=== PATIENT | male | born 1950 | race Caucasian/White ===

== ENCOUNTER 2018-06-30 11:09 | Outpatient (CLI) | payer MEDICARE | END 2018-06-30 11:10 | disposition home or self-care (01) | LOC: BICRAD 11:09 | PROVIDERS: ATTEND Internal Medicine | DX: J44.9 Chronic obstructive pulmonary disease, unspecified (principal) | CPT/HCPCS: 71046 ==

== ENCOUNTER 2018-07-14 10:47 | Outpatient (CLI) | payer MEDICARE ==
--- NOTE | 2018-07-14 11:23 | ULT ---
RENAL ULTRASOUND: History: Chronic renal disease. FINDINGS: Real-time imaging of the right and left kidneys were performed. The right kidney measures 9.6. The le ft kidney 10.9 cm in size. No signs of cyst, mass or obstruction. The bladder region appears unremark able. IMPRESSION: Unremarkable renal ultrasound. POS: [facility]
== END 2018-07-14 10:48 | disposition home or self-care (01) ==
LOC: SCSULT 10:47
PROVIDERS: ATTEND Internal Medicine
DX: N18.3 Chronic kidney disease, stage 3 (moderate) (principal)
CPT/HCPCS: 76770

== ENCOUNTER 2018-07-20 09:14 | Outpatient (CLI) | payer MEDICARE ==
--- NOTE | 2018-07-20 10:54 | CT ---
CT CHEST WITHOUT CONTRAST: HISTORY: History of nicotine dependence. A 40-year smoking history. The patient quit in 2007. Low dose [facility] screening protocol. TECHNIQUE: Multiple contiguous axial images were obtained in a CT of the chest without contrast, per low dose mi ncer screening protocol. Coronal reformats were performed. FINDINGS: No focal infiltrates are seen in the lungs. No suspicious pulmonary nodules are seen. There is a kristy ny excrescence projecting off one of the left mid ribs, along the periphery of the left upper lobe. No pneumothorax or pleural effusion is seen. The heart is normal in size. A pacemaker is seen with its leads in the right atrium and ventricle. No hilar or mediastinal lymphadenopathy is appreciated on this limited noncontrast examination. Degenerative changes are seen in the spine. The visualized subdiaphragmatic structures are unremarka ble. There is a 2.4 cm mass in the soft tissues of the back. The chest wall soft tissues are otherw ise unremarkable. IMPRESSION: 1. Lung-RADS category 1-Negative. 2. Soft tissue density of the back, which may represent a sebaceous cyst. Correlate with physical e xamination. POS: [facility]
== END 2018-07-20 09:15 | disposition home or self-care (01) ==
LOC: CT 09:14
PROVIDERS: ATTEND Internal Medicine
DX: Z87.891 Personal history of nicotine dependence (principal)
CPT/HCPCS: G0297

== ENCOUNTER 2018-10-16 11:19 | Observation (INO) | payer MEDICARE ==
[2018-10-16 12:09] LABS: #Eosinphils 0.1 thou/uL (0.0-0.7); #Lymphocytes 2.6 thou/uL (1.20-3.40); #Monocytes 0.4 thou/uL (0.11-0.59); #Neutrophils 2.9 thou/uL (1.40-6.50); %Basophils 0.6 % (0.0-1.0); %Eosinophils 1.1 % (0.0-10.0); %Lymphocytes 42.7 % (21.0-51.0); %Monocytes 6.9 % (0.0-10.0); %Neutrophils 48.8 % (42.0-75.0); Hemoglobin 14.2 g/dL (14.0-18.0); Mean Corpuscular HGB CONC 33.6 g/dL (32.0-36.0); Mean Corpuscular Hemoglobin 30.8 pg (27.0-31.0); Mean Corpuscular Volume 91.7 fL (78.0-98.0); Mean Platelet Volume 10.4 fL (7.4-10.4); Platelet Count 158 thou/uL (130-400); RBC Distribution Width 12.8 % (11.5-14.5); Red Blood Cell (RBC) Count 4.61 mill/uL (4.70-6.10)
[2018-10-16 12:26] LABS: ALT (SGPT) 18 U/L (8-55); AST (SGOT) 18 U/L (5-34); Alkaline Phosphatase 114 U/L (40-150); Anion Gap 9 mmol/L (10-20); BUN (Urea Nitrogen) 17 mg/dL (8.4-25.7); Bilirubin, Total 0.7 mg/dL (0.2-1.2); CK (CPK) 172 U/L (30-200); Calc. Creatinine Clearance 0 mL/min (70-130); Calcium 9.3 mg/dL (7.8-10.44); Carbon Dioxide 27 mmol/L (23-31); Chloride 108 mmol/L (98-107); Estimated GFR-MDRD 78; Glucose 97 mg/dL (80-115); Lipase 13 U/L (8-78); Potassium 3.9 mmol/L (3.5-5.1); Sodium 140 mmol/L (136-145)
[2018-10-16 12:28] LABS: CKMB 2.5 ng/mL (0-6.6); Troponin I Less than 0.010 ng/mL (< 0.028)
[2018-10-16] MEDS ORDERED: Nitroglycerin 2% Ointment 1 INCH/1 GM Packet ONE (12:37)
--- NOTE | 2018-10-16 13:10 | RAD ---
RADIOGRAPH CHEST 1 VIEW: HISTORY: 68-year-old male with acute chest pain and hypertension. FINDINGS: There are no air space densities, pulmonary edema, pneumothorax, or cardiomegaly. The lateral costop hrenic angles are sharp. There is a dual lead left subclavian pacemaker. IMPRESSION: 1. No acute cardiopulmonary findings. 2. Pacemaker. roly [] POS: [facility]
[2018-10-16 14:32] VITALS: BMI 32.2
[2018-10-16 15:33] LABS: Troponin I 0.013 ng/mL (< 0.028)
[2018-10-16] MEDS ORDERED: Acetaminophen 325 MG TAB PO PRN (15:36)
[2018-10-16] MEDS ORDERED: Ondansetron PF 4 MG/2 ML Vial IVP PRN (15:36)
[2018-10-16] MEDS ORDERED: hydrALAZINE 20 MG/ML VIAL SLOW IVP PRN (15:38)
[2018-10-16] MEDS ORDERED: PROVENTIL INHALER 6.7 G (200 INHALATIONS) INH PRN (15:38)
[2018-10-16] MEDS: Mometasone/Formoterol 120 PUFF INHALER INH SCH (19:11)
[2018-10-16] MEDS ORDERED: Atorvastatin Calcium 20 MG TAB PO SCH (21:00)
[2018-10-16] MEDS: Carvedilol 25 MG TAB PO SCH (21:17)
[2018-10-16] MEDS: Famotidine 20 MG TAB PO SCH (21:17)
--- NOTE | 2018-10-17 04:27 | HP ---
PRIMARY CARE PHYSICIAN: Eusebia Argueta MD CHIEF COMPLAINT: Elevated blood pressure. HISTORY OF PRESENT ILLNESS: Mr. Norton is a pleasant 68-year-old male with past medical history of CHF, AFib, COPD, and recent TIAs, who had presented to [facility] for high blood pressure. He states he was at home with his and a home care nurse came to check up on him. When the nurse began to take his vital signs, it was noted that his blood pressure was elevated at 190/120, it was at that time that it was recommended that the patient seek further evaluation in the emergency department. He had arrived with his . Upon arrival to the emergency department, his blood pressure seemed to improve, however was still elevated at 149/72 with the highest reading being 169/94. He had no further complaints of chest pain, shortness of breath, or abdominal pain; however, he states that last night, he had about 15 seconds of chest pain when he was watching television. He had stated that his pain resolved spontaneously. He had no further symptoms throughout the night or onto this morning. He was given a dose of aspirin 324 mg and given a dose of nitro transdermal for his symptoms. He had tolerated this well without complications. He had stated on the right over, he had developed a slight headache; however, this had improved during his visit to the ER. He was then transferred up to the floor and on telemetry observation where he was seen by myself, his was at bedside. He had no further complaints at that time. He had reported his primary car rental agent is Dr. Zaid Rowan. A phone call was made to Dr. Rowan for further discussion about the patient. Dr. Rowan said had undergone a pacemaker interrogation recently which found a run of paroxysmal atrial fibrillation. Dr. Rowan states that he will work the patient up for this and monitor him as outpatient. Dr. Rowan also explained that there were recent changes to the patient's home medications, including the discontinuation of nifedipine with hydrochlorothiazide, the patient was then started on spironolactone which he has now taken 3 days of this new medication. He has been tolerating this well. Dr. Rowan had stated that he had noticed some lower extremity swelling and this has led for the recent medication change. Dr. Rowan was made aware of his initial cardiac biomarkers being negative x3. Dr. Rowan had then recommended to check an echocardiogram and also monitor patient's vital signs closely. Once he is stable, he will be able to follow up with him as outpatient. This was then discussed with patient and and they agreed to plan. PAST MEDICAL HISTORY: CHF, atrial fibrillation, COPD, TIA, pacemaker placement , and hypertension. PAST SURGICAL HISTORY: Pacemaker placement, left carotid endarterectomy, and vasectomy. PSYCHIATRIC HISTORY: This includes history of anxiety and depression. SOCIAL HISTORY: Former smoker, however, denies any tobacco use, alcohol use, or further drug use. FAMILY HISTORY: Not significant. ALLERGIES: NO KNOWN DRUG ALLERGIES AT THIS TIME. CURRENT MEDICATIONS: 1. Aspirin 325 mg p.o. daily. 2. Carvedilol 25 mg p.o. twice daily. 3. Atorvastatin 20 mg p.o. at bedtime. 4. Lisinopril 20 mg p.o. daily. 5. Spironolactone 25 mg p.o. daily. 6. Advair Diskus 250/50 one puff inhalation b.i.d. 7. Albuterol sulfate 8.5 g HFA, 2 puff inhalation q.4 hours p.r.n. shortness of breath or wheezing. REVIEW OF SYSTEMS: The following complete review of systems was negative unless otherwise mentioned in the HPI or below. CONSTITUTIONAL: No weight loss or weight gain. He was able to conduct usual activities. SKIN: No rash. No itching. No lesions. EYES: Denies any double vision, pain, or vision changes. ENT: Denies any nose bleeds, neck stiffness, pain, or tenderness. CARDIOVASCULAR: Did report 15 seconds of chest pain late last night; however, denies any chest pain, palpitations, dyspnea on exertion, or orthopnea at this time. RESPIRATORY: Denies shortness of breath, wheezing, cough, hemoptysis, fever, or night sweats. GASTROINTESTINAL: Denies poor appetite. Denies abdominal pain, apparent nausea , vomiting, constipation, or diarrhea. GENITOURINARY: Denies any urgency, frequency, blood in urine, or dysuria. MUSCULOSKELETAL: Denies any pain, however, does report some mild swelling; however, this has improved since starting on spironolactone. NEUROLOGIC: Denies any weakness or tingling or loss of sensation. PSYCHIATRIC: Does report some mild anxiety and depression; however, this is stable at this time. PHYSICAL EXAMINATION: VITAL SIGNS: Blood pressure 148/86, pulse 66, respirations 12, temperature 98.5 degrees Fahrenheit, O2 saturation is 94% on room air. GENERAL: The patient is alert and oriented x3, sitting up in bed with at bedside. No acute distress noted. HEENT: Normocephalic and atraumatic. Eyes; pupils are round and reactive to light. Extraocular muscles intact. Moist mucous membranes. Oropharynx within normal limits. No oral lesions. No oropharyngeal erythema noted. NECK: Soft, supple, normal range of motion. Surgical site is clean from previous Carotid endarterectomy. CARDIOVASCULAR: Positive S1 and S2. Regular rate and rhythm. Currently in paced rhythm on the monitor without murmur noted. ABDOMEN: Soft and nontender. Bowel sounds present. RESPIRATORY: Clear to auscultation bilaterally without wheezes, rhonchi, or rales. EXTREMITIES: Strength 5+ bilaterally. Moves all extremities equally. Good peripheral pulses noted. +1 nonpitting edema in lower extremities. SKIN: No rashes. No lesions. NEUROLOGICAL: Cranial nerves 2 through 12 intact. Motor 5+ in all 4 limbs. Sensation intact. Reflexes normal. Gait normal. No focal deficits noted. PSYCHIATRIC: Normal mood and affect. No suicidal or homicidal ideation at this time. SIGNIFICANT LABS: WBC 6.0, RBC 4.61, hemoglobin 14.2. Sodium 140, potassium 3.9, creatinine 0.95, BUN 17, estimated GFR is 78, glucose 97. Troponin less than 0.010 x3. DIAGNOSTIC IMAGING: Chest x-ray showed no acute cardiopulmonary findings, pacemaker in place. ASSESSMENT AND PLAN: 1. Hypertension, continue patient's home medications at this time. We will start IV hydralazine as needed for systolic blood pressure greater than 170. Will likely require adding oral antihypertensive like hydralazine prior to discharge. We will monitor the patient closely and further changes pending patient's progress. 2. Chest pain, cardiac biomarkers negative x3. Pacemaker in place. We will order for interrogation of pacemaker. We will order echocardiogram for further evaluation. Pending inpatient progress, we will also consider consult to Cardiology; however, there was further discussion with his primary car rental agent , Dr. Rowan, who will plan to follow up with the patient as outpatient. 3. Peripheral vascular disease, continue the patient's home medications including aspirin and statin therapy. Continue to monitor and further changes as needed. 4. Dyslipidemia. As above, continue patient's statin therapy at this time. 5. Deep vein thrombosis prophylaxis with Lovenox 40 mg subcutaneous daily. 6. Gastrointestinal prophylaxis with Pepcid 20 mg p.o. b.i.d. DISPOSITION: Further management pending patient's progress and workup. He will likely be discharged in the next 24 hours if workup is negative. He will have further follow with primary car rental agent, Dr. Rowan, as outpatient. Job ID: [id number] Pt seen and examined in conjunction with Jimy Park PA-C on the day of service. I have seen and evaluated the patient and reviewed all documentations. I agree with the findings and plan as outlined in his note and participated in Medical decision-making. -Cesario Marr MD [facility]
[2018-10-17 05:58] LABS: #Basophils 0.1 thou/uL (0.0-0.2); #Eosinphils 0.1 thou/uL (0.0-0.7); #Lymphocytes 2.7 thou/uL (1.20-3.40); #Monocytes 0.6 thou/uL (0.11-0.59); #Neutrophils 3.6 thou/uL (1.40-6.50); %Basophils 0.7 % (0.0-1.0); %Eosinophils 1.4 % (0.0-10.0); %Lymphocytes 38.3 % (21.0-51.0); %Monocytes 8.4 % (0.0-10.0); %Neutrophils 51.2 % (42.0-75.0); Mean Corpuscular HGB CONC 33.1 g/dL (32.0-36.0); Mean Corpuscular Hemoglobin 30.7 pg (27.0-31.0); Mean Corpuscular Volume 92.6 fL (78.0-98.0); Mean Platelet Volume 10.3 fL (7.4-10.4); Platelet Count 148 thou/uL (130-400); RBC Distribution Width 12.9 % (11.5-14.5); Red Blood Cell (RBC) Count 4.23 mill/uL (4.70-6.10)
[2018-10-17 06:08] LABS: Anion Gap 12 mmol/L (10-20); BUN (Urea Nitrogen) 16 mg/dL (8.4-25.7); Calc. Creatinine Clearance 94 mL/min (70-130); Calcium 8.8 mg/dL (7.8-10.44); Carbon Dioxide 25 mmol/L (23-31); Chloride 108 mmol/L (98-107); Estimated GFR-MDRD 72; Glucose 102 mg/dL (80-115); Potassium 3.9 mmol/L (3.5-5.1); Sodium 141 mmol/L (136-145)
[2018-10-17] MEDS: Famotidine 20 MG TAB PO SCH (08:31)
[2018-10-17] MEDS: Carvedilol 25 MG TAB PO SCH (08:31)
[2018-10-17] MEDS ORDERED: Lisinopril 20 MG TAB PO SCH (09:00)
[2018-10-17] MEDS ORDERED: Aspirin 325 mg Enteric Coated Tablet PO SCH (09:00)
[2018-10-17] MEDS ORDERED: Enoxaparin Sodium 40 MG/0.4 ML SYRINGE SC SCH (09:00)
[2018-10-17] MEDS ORDERED: Spironolactone 25 MG TAB PO SCH (09:00)
[2018-10-17] MEDS: Mometasone/Formoterol 120 PUFF INHALER INH SCH (11:56)
[2018-10-17 12:16] VITALS: BP 166/72; TEMP 98.5
[2018-10-17] MEDS ORDERED: hydrALAZINE 25 MG TAB PO SCH ×3 (13:45→21:00)
--- NOTE | 2018-10-23 14:17 | EKG ---
Test Reason : Blood Pressure : / mmHG Vent. Rate : 080 BPM Atrial Rate : 080 BPM P-R Int : 160 ms QRS Dur : 118 ms QT Int : 398 ms P-R-T Axes : 015 -19 004 degrees QTc Int : 459 ms Sinus rhythm with sinus arrhythmia with occasional Premature ventricular complexes Non-specific intra-ventricular conduction delay Borderline ECG Confirmed by BITA OLMEDO MD ([id number]), editor map KRANTHI RUELAS ([id number]) on 10/23/2018 2:16:42 PM Referred By: Confirmed By:BITA OLMEDO MD
== END 2018-10-17 14:05 | disposition home or self-care (01) ==
LOC: ERS 11:19 → 2SW 14:16
PROVIDERS: ADMIT Internal Medicine Infectious Disease; ATTEND Internal Medicine Infectious Disease
DX: I11.0 Hypertensive heart disease with heart failure (principal); I50.9 Heart failure, unspecified; I48.91 Unspecified atrial fibrillation; J44.9 Chronic obstructive pulmonary disease, unspecified; I73.9 Peripheral vascular disease, unspecified; Z86.73 Personal history of transient ischemic attack (TIA), and cerebral infarction without residual deficits; Z87.891 Personal history of nicotine dependence; Z79.82 Long term (current) use of aspirin; Z79.899 Other long term (current) drug therapy; Z95.0 Presence of cardiac pacemaker
CPT/HCPCS: 71045; 80048; 80053; 82550; 82553; 83690; 83880; 84484 ×2; 85025 ×2; 93005; 93306; 94640 ×2; 94664; 94760; 96372; 99284; G0378 ×2; 36415; J1650

== ENCOUNTER 2019-03-29 08:08 | Outpatient (CLI) | payer MEDICARE ==
--- NOTE | 2019-03-29 08:28 | RAD ---
Exam: XR Knee Rt 2 View HISTORY: Right knee pain. History of prior knee injury. COMPARISON: None FINDINGS: There is tricompartment osteophytosis. There is narrowing of the medial joint compartment as well as patellofemoral joint. Prominent osteophytes are seen at the patellofemoral joint and medial joint compartment. There is subchondral sclerosis involving the medial joint compartment. No acute fracture, dislocation, or other acute osseous abnormality is identified. IMPRESSION: Osteoarthritis.
--- NOTE | 2019-03-29 09:47 | RAD ---
LEFT KNEE THREE VIEWS: HISTORY: Pain. COMPARISON: None. FINDINGS: Moderate joint effusion. Severe medial compartment degenerative change with narrowing, sclerosis, an d osteophyte formation. Moderate lateral compartment and patellofemoral compartment degenerative anitha nges. IMPRESSION: Advanced medial compartment degenerative change. No acute fracture or malalignment. POS: [facility]
== END 2019-03-29 08:09 | disposition home or self-care (01) ==
LOC: BICRAD 08:08
PROVIDERS: ATTEND Internal Medicine
DX: M25.562 Pain in left knee (principal); M25.561 Pain in right knee; M17.0 Bilateral primary osteoarthritis of knee
CPT/HCPCS: 36415; 80048

== ENCOUNTER 2019-06-28 16:54 | Emergency (ER) | payer MEDICARE ==
[2019-06-28 17:24] LABS: #Basophils 0.1 thou/uL (0.0-0.2); #Eosinphils 0.1 thou/uL (0.0-0.7); #Lymphocytes 2.7 thou/uL (1.20-3.40); #Monocytes 0.8 thou/uL (0.11-0.59); #Neutrophils 4.1 thou/uL (1.40-6.50); %Eosinophils 1.5 % (0.0-10.0); %Lymphocytes 35.3 % (21.0-51.0); %Neutrophils 52.2 % (42.0-75.0); Hemoglobin 13.5 g/dL (14.0-18.0); Mean Corpuscular HGB CONC 33.2 g/dL (32.0-36.0); Mean Corpuscular Hemoglobin 30.8 pg (27.0-31.0); Mean Corpuscular Volume 92.5 fL (78.0-98.0); Platelet Count 153 thou/uL (130-400); RBC Distribution Width 13.1 % (11.5-14.5); Red Blood Cell (RBC) Count 4.38 mill/uL (4.70-6.10); White Blood Cell (WBC) Count 7.8 thou/uL (4.8-10.8)
--- NOTE | 2019-06-28 17:24 | RAD ---
PORTABLE CHEST: HISTORY: History of congestive heart failure. Swelling and edema. COMPARISON: Study from 10/16/2018. FINDINGS: Heart size is borderline with a pacemaker in place. Lungs are clear of infiltrative process. No sig ns of failure. IMPRESSION: No active intrathoracic disease. POS: [facility]
[2019-06-28 17:53] LABS: ALT (SGPT) 18 U/L (8-55); AST (SGOT) 16 U/L (5-34); Albumin 3.9 g/dL (3.4-4.8); Alkaline Phosphatase 111 U/L (40-150); Anion Gap 13 mmol/L (10-20); BUN (Urea Nitrogen) 25 mg/dL (8.4-25.7); Bilirubin, Total 0.4 mg/dL (0.2-1.2); CK (CPK) 87 U/L (30-200); Calc. Creatinine Clearance 0 mL/min (70-130); Carbon Dioxide 23 mmol/L (23-31); Chloride 107 mmol/L (98-107); Estimated GFR-MDRD 67; Globulin 2.9 g/dL (2.4-3.5); Glucose 97 mg/dL (83-110); Lipase 17 U/L (8-78); Potassium 3.9 mmol/L (3.5-5.1); Protein, Total 6.8 g/dL (5.8-8.1); Sodium 139 mmol/L (136-145)
== END 2019-06-28 20:01 | disposition left against medical advice (07) ==
LOC: ERS 16:54
DX: Z53.21 Procedure and treatment not carried out due to patient leaving prior to being seen by health care provider (principal)
CPT/HCPCS: 36415; 71045; 80053; 82550; 83690; 83880; 84484; 85025; 93005

== ENCOUNTER 2019-06-28 19:52 | Emergency (ER) | payer MEDICARE | END 2019-06-28 20:19 | disposition home or self-care (01) | LOC: SCSER 19:52 | DX: R60.0 Localized edema (principal); G47.30 Sleep apnea, unspecified; N18.3 Chronic kidney disease, stage 3 (moderate); I50.9 Heart failure, unspecified; Z86.73 Personal history of transient ischemic attack (TIA), and cerebral infarction without residual deficits; J44.9 Chronic obstructive pulmonary disease, unspecified; F32.9 Major depressive disorder, single episode, unspecified; Z87.891 Personal history of nicotine dependence; Z79.899 Other long term (current) drug therapy | CPT/HCPCS: 36415; 71045; 80053; 82550; 83690; 83880; 84484; 85025; 93005; 99283 ==

== ENCOUNTER 2019-07-20 11:04 | Outpatient (CLI) | payer MEDICARE ==
--- NOTE | 2019-07-20 12:07 | MRI ---
EXAM: MRI of the brain without contrast HISTORY: Memory deficit COMPARISON: None TECHNIQUE: Multiplanar multisequence MR images were obtained of the brain without IV contrast. FINDINGS: Scattered foci of high T2/FLAIR signal in the subcortical and periventricular white matter are likely secondary to small vessel ischemic disease. No restricted diffusion. No hydronephrosis. No extra-axial fluid collection or intracranial hemorrhage. The expected flow voids are present. Corpus callosum, pituitary, and craniocervical junction are within normal limits. The calvarium and overlying soft tissues are unremarkable. The paranasal sinuses and mastoid air cells are well aerated. IMPRESSION: Small vessel ischemic disease without acute intracranial abnormality.
== END 2019-07-20 11:05 | disposition home or self-care (01) ==
LOC: MRI 11:04 → EDSTATUS 12:00
PROVIDERS: ATTEND Internal Medicine
DX: R41.3 Other amnesia (principal); I67.82 Cerebral ischemia
CPT/HCPCS: 70551

== ENCOUNTER 2022-06-27 08:40 | Outpatient (CLI) | payer OTHER | END 2022-06-27 08:41 | disposition home or self-care (01) | LOC: BICCT 08:40 | PROVIDERS: ATTEND Internal Medicine | DX: Z12.2 Encounter for screening for malignant neoplasm of respiratory organs (principal) | CPT/HCPCS: 71271 ==

== ENCOUNTER 2024-01-09 07:11 | Inpatient (IN) | payer MEDICARE ==
[2024-01-09 07:57] LABS: #Eosinphils 0.1 thou/uL (0.0-0.7); #Monocytes 1.2 thou/uL (0.11-0.59); #Neutrophils 8.8 thou/uL (1.40-6.50); %Basophils 0.3 % (0.0-1.0); %Eosinophils 1.2 % (0.0-10.0); %Lymphocytes 13.7 % (21.0-51.0); %Neutrophils 74.5 % (42.0-75.0); Hematocrit 40.5 % (42.0-52.0); Hemoglobin 13.7 g/dL (14.0-18.0); Mean Corpuscular HGB CONC 33.8 g/dL (32.0-36.0); Mean Corpuscular Hemoglobin 29.6 pg (27.0-31.0); Mean Corpuscular Volume 87.5 fl (78.0-98.0); Mean Platelet Volume 12.2 fL (7.4-10.4); Platelet Count 211 10x3/uL (130-400); RBC Distribution Width 14.1 % (11.5-14.5); Red Blood Cell (RBC) Count 4.63 mill/uL (4.70-6.10); White Blood Cell (WBC) Count 11.8 10x3/uL (4.8-10.8)
[2024-01-09] MEDS ORDERED: Ipratropium/Albuterol 3 ML NEB ONE (08:18)
[2024-01-09 08:22] LABS: INR-International Normal Ratio 1.9; Prothrombin Time 21.6 sec (12.0-14.7)
[2024-01-09 08:27] LABS: ALT (SGPT) 45 U/L (8-55); AST (SGOT) 36 U/L (5-34); Alkaline Phosphatase 186 U/L (40-110); Anion Gap 11 mmol/L (10-20); BUN (Urea Nitrogen) 15 mg/dL (8.4-25.7); Bilirubin, Total 1.4 mg/dL (0.2-1.2); Calc. Creatinine Clearance 0 mL/min (70-130); Calcium 9.1 mg/dL (7.8-10.44); Carbon Dioxide 29 mmol/L (23-31); Chloride 100 mmol/L (98-107); Estimated GFR 80; Globulin 3.7 g/dL (2.4-3.5); Glucose 119 mg/dL (83-110); Potassium 3.6 mmol/L (3.5-5.1); Protein, Total 6.7 g/dL (5.8-8.1); Sodium 136 mmol/L (136-145)
[2024-01-09 08:30] LABS: Troponin I Less than 0.010 ng/mL (< 0.028)
[2024-01-09 09:04] LABS: Influenza A by NAA Not Detected (NotDetected); Influenza B by NAA Not Detected (NotDetected); SARS-CoV-2 NAA Rapid Test Not Detected (NotDetected)
[2024-01-09] MEDS ORDERED: Acetaminophen 650 MG Suppository PR PRN (11:06)
[2024-01-09] MEDS ORDERED: Calcium Carbonate 500 MG ChewTAB PO PRN (11:06)
[2024-01-09] MEDS ORDERED: Senokot S 8.6-50 MG TAB PO PRN (11:06)
[2024-01-09] MEDS ORDERED: Acetaminophen 325 MG TAB PO PRN (11:06)
[2024-01-09] MEDS ORDERED: Ondansetron PF 4 MG/2 ML Vial IVP PRN (11:06)
[2024-01-09] MEDS ORDERED: Ipratropium/Albuterol 3 ML NEB NEB PRN (11:16)
[2024-01-09] MEDS ORDERED: Benzonatate 100 MG CAP PO PRN (11:19)
[2024-01-09] MEDS ORDERED: Cefepime 2 GM VIAL ONE (11:30)
[2024-01-09] MEDS ORDERED: Sodium Chloride 0.9% 100 ML ONE (11:30)
[2024-01-09] MEDS ORDERED: Vancomycin 1 GM/200 ML (FROZEN) BAG ONE (12:00)
[2024-01-09] MEDS: Vancomycin HCl 750 MG in Sodium Chloride 0.9% 250 ML 250 ML IVPB SCH (14:16)
[2024-01-09] MEDS: methylPREDNISolone Sod Succ/PF 125 MG/2 ML VIAL IVP SCH (14:16)
[2024-01-09] MEDS: Sodium Chloride 0.9% 1,000 ML IV SCH (14:17)
[2024-01-09 14:29] VITALS: BMI 28.3
[2024-01-09] MEDS: hydrALAZINE 25 MG TAB PO SCH (19:01)
[2024-01-09] MEDS: Mometasone 200 MCG/Formoterol 5 MCG 120 PUFF INHALER INH SCH (19:22)
[2024-01-09] MEDS: Apixaban 5 MG TAB PO SCH (20:56)
[2024-01-09] MEDS: Piperacillin/Tazobactam 3.375 GM in Sodium Chloride 0.9% 100 ML IVPB SCH (20:56)
[2024-01-09] MEDS: Carvedilol 25 MG TAB PO SCH (20:56)
[2024-01-09] MEDS: Atorvastatin Calcium 20 MG TAB PO SCH (20:57)
[2024-01-10] MEDS: Piperacillin/Tazobactam 3.375 GM in Sodium Chloride 0.9% 100 ML IVPB SCH (00:57)
[2024-01-10 06:03] LABS: #Monocytes 0.1 thou/uL (0.11-0.59); #Neutrophils 9.6 thou/uL (1.40-6.50); %Basophils 0.1 % (0.0-1.0); %Lymphocytes 10.1 % (21.0-51.0); %Monocytes 1.1 % (0.0-10.0); %Neutrophils 88.3 % (42.0-75.0); Hematocrit 37.9 % (42.0-52.0); Hemoglobin 12.6 g/dL (14.0-18.0); Mean Corpuscular HGB CONC 33.2 g/dL (32.0-36.0); Mean Corpuscular Hemoglobin 29.6 pg (27.0-31.0); Mean Corpuscular Volume 89.2 fl (78.0-98.0); Mean Platelet Volume 12.3 fL (7.4-10.4); Platelet Count 224 10x3/uL (130-400); Red Blood Cell (RBC) Count 4.25 mill/uL (4.70-6.10); White Blood Cell (WBC) Count 10.9 10x3/uL (4.8-10.8)
[2024-01-10 06:33] LABS: ALT (SGPT) 56 U/L (8-55); AST (SGOT) 48 U/L (5-34); Albumin 2.9 g/dL (3.4-4.8); Alkaline Phosphatase 181 U/L (40-110); Anion Gap 10 mmol/L (10-20); BUN (Urea Nitrogen) 15 mg/dL (8.4-25.7); Bilirubin, Total 0.7 mg/dL (0.2-1.2); Calc. Creatinine Clearance 91 mL/min (70-130); Carbon Dioxide 26 mmol/L (23-31); Chloride 104 mmol/L (98-107); Estimated GFR 90; Globulin 3.5 g/dL (2.4-3.5); Glucose 228 mg/dL (83-110); Magnesium 1.9 mg/dL (1.6-2.6); Potassium 3.7 mmol/L (3.5-5.1); Protein, Total 6.4 g/dL (5.8-8.1); Sodium 136 mmol/L (136-145)
[2024-01-10] MEDS: Aspirin 81 mg Enteric Coated Tablet PO SCH (08:53)
[2024-01-10] MEDS ORDERED: Vancomycin HCl 750 MG in Sodium Chloride 0.9% 250 ML 250 ML IVPB SCH (09:00)
[2024-01-10] MEDS ORDERED: Enoxaparin 40 MG (0.4 mL) SYRINGE SC SCH (09:00)
[2024-01-10] MEDS ORDERED: Aspirin 325 mg Enteric Coated Tablet PO SCH (09:00)
[2024-01-10] MEDS: Lisinopril 20 MG TAB PO SCH (09:01)
[2024-01-10] MEDS: methylPREDNISolone Sod Succ 40 MG VIAL IVP SCH (09:03)
[2024-01-10] MEDS ORDERED: Vancomycin (BATCH) 1.75 GM in Premix 1 BAG IVPB SCH (12:00)
[2024-01-10] MEDS: Vancomycin (BATCH) 1.75 GM in Premix 1 BAG IVPB SCH (12:51)
[2024-01-11 06:01] LABS: #Monocytes 0.5 thou/uL (0.11-0.59); #Neutrophils 20.8 thou/uL (1.40-6.50); %Basophils 0.1 % (0.0-1.0); %Lymphocytes 6.4 % (21.0-51.0); %Neutrophils 90.9 % (42.0-75.0); Hematocrit 38.9 % (42.0-52.0); Mean Corpuscular HGB CONC 33.4 g/dL (32.0-36.0); Mean Corpuscular Volume 89.6 fl (78.0-98.0); Mean Platelet Volume 12.3 fL (7.4-10.4); Platelet Count 260 10x3/uL (130-400); RBC Distribution Width 14.2 % (11.5-14.5); Red Blood Cell (RBC) Count 4.34 mill/uL (4.70-6.10); White Blood Cell (WBC) Count 22.8 10x3/uL (4.8-10.8)
[2024-01-11 06:33] LABS: Anion Gap 14 mmol/L (10-20); BUN (Urea Nitrogen) 18 mg/dL (8.4-25.7); Calc. Creatinine Clearance 87 mL/min (70-130); Calcium 9.2 mg/dL (7.8-10.44); Carbon Dioxide 24 mmol/L (23-31); Chloride 105 mmol/L (98-107); Estimated GFR 89; Glucose 242 mg/dL (83-110); Potassium 4.1 mmol/L (3.5-5.1); Sodium 139 mmol/L (136-145)
[2024-01-11] MEDS: methylPREDNISolone Sod Succ 40 MG VIAL IVP SCH (09:12)
[2024-01-11 11:14] LABS: Vancomycin, Trough 8.1 ug/mL
[2024-01-11] MEDS: Vancomycin 1 GM in Premix 1 BAG IVPB SCH (14:38)
[2024-01-12 04:20] LABS: #Monocytes 0.7 thou/uL (0.11-0.59); #Neutrophils 16.6 thou/uL (1.40-6.50); %Basophils 0.1 % (0.0-1.0); %Lymphocytes 7.8 % (21.0-51.0); %Monocytes 3.5 % (0.0-10.0); %Neutrophils 87.9 % (42.0-75.0); Hematocrit 37.5 % (42.0-52.0); Hemoglobin 12.5 g/dL (14.0-18.0); Mean Corpuscular HGB CONC 33.3 g/dL (32.0-36.0); Mean Corpuscular Volume 89.9 fl (78.0-98.0); Mean Platelet Volume 12.1 fL (7.4-10.4); Platelet Count 245 10x3/uL (130-400); RBC Distribution Width 14.4 % (11.5-14.5); Red Blood Cell (RBC) Count 4.17 mill/uL (4.70-6.10); White Blood Cell (WBC) Count 18.8 10x3/uL (4.8-10.8)
[2024-01-12 05:54] LABS: Anion Gap 14 mmol/L (10-20); BUN (Urea Nitrogen) 21 mg/dL (8.4-25.7); Calc. Creatinine Clearance 83 mL/min (70-130); Calcium 8.7 mg/dL (7.8-10.44); Carbon Dioxide 24 mmol/L (23-31); Chloride 104 mmol/L (98-107); Estimated GFR 83; Glucose 243 mg/dL (83-110); Potassium 4.2 mmol/L (3.5-5.1); Sodium 138 mmol/L (136-145)
[2024-01-12 08:01] VITALS: BP 148/97; TEMP 96.7
== END 2024-01-12 10:30 | disposition home health service (06) | DRG 190 ==
LOC: ERS 07:11 → SUATTDRO 07:11 → SURG B 11:06
PROVIDERS: ADMIT Internal Medicine; ATTEND Internal Medicine
DX: J44.1 Chronic obstructive pulmonary disease with (acute) exacerbation (principal); J18.9 Pneumonia, unspecified organism; I50.32 Chronic diastolic (congestive) heart failure; I69.352 Hemiplegia and hemiparesis following cerebral infarction affecting left dominant side; E78.5 Hyperlipidemia, unspecified; R53.1 Weakness; I48.91 Unspecified atrial fibrillation; Z66 Do not resuscitate; I11.0 Hypertensive heart disease with heart failure; Z79.82 Long term (current) use of aspirin; Z79.899 Other long term (current) drug therapy; Z79.51 Long term (current) use of inhaled steroids
CPT/HCPCS: 36415; 70450; 71045; 74230; 80048; 80053; 80202; 83605; 83735; 83880; 84484; 85025; 85610; 85730; 87040; 87070; 87081; 87149; 87205; 93005; 94640; 94760; 96365; 96375; J0692; J2543; J2920; J2930; J3370; J3370-JW; J3490; J7050; J7620

== ENCOUNTER 2024-05-18 10:22 | Outpatient (CLI) | payer MEDICARE | END 2024-05-18 10:23 | disposition home or self-care (01) | LOC: RAD 10:22 | PROVIDERS: ATTEND Internal Medicine Critical Care Medicine | DX: R06.00 Dyspnea, unspecified (principal) | CPT/HCPCS: 71046 ==

== ENCOUNTER 2025-06-27 09:59 | Outpatient (CLI) | payer OTHER | END 2025-06-27 10:00 | disposition home or self-care (01) | LOC: BICRAD 09:59 | PROVIDERS: ATTEND Internal Medicine | DX: M79.675 Pain in left toe(s) (principal); M19.072 Primary osteoarthritis, left ankle and foot ==